=== PATIENT | male | born 1975 | race Two or more races ===

== ENCOUNTER 2016-07-11 03:06 | Inpatient (IN) | payer MEDICAID ==
[~2016-07-11] VITALS: Ht 182.9 cm; Wt 106.4 kg
[2016-07-11 04:00] LABS: Basophils # (auto) 0 uL; Basophils % (auto) 0.3 % (0.0-2.0); DEFINITIVE VIEW TRANSMISSION; Eosinophils # (auto) 0 uL; Eosinophils % (auto) 0.4 % (0.0-7.0); Hematocrit 40.9 % (41.0-53.0); Hemoglobin 13.5 g/dL (13.5-17.5); Lymphocytes # (auto) 1.5 uL; Lymphocytes % (auto) 12.9 % (10.0-50.0); Mean Corpuscular Hemoglobin 29.9 pg (28.0-32.0); Mean Corpuscular Volume 90.6 fL (80.0-100.0); Mean Platelet Volume 9.5 fL (7.4-10.4); Monocytes # (auto) 1.7 uL; Monocytes % (auto) 14.4 % (0.0-12.0); Neutrophils # (auto) 8.7 uL; Platelet Count (auto) 203 10^3/uL (140-450); Red Cell Distribution Width 13.6 % (11.6-16.0)
[2016-07-11 04:10] LABS: INR 1.12 (0.9-1.15); Partial Thromboplastin Time 31.7 sec (22.64-33.71); Prothrombin Time 11.5 sec (9.37-12.3)
[2016-07-11 04:20] LABS: B-Type Natriuretic Peptide 10.73 pg/mL (0-100)
[2016-07-11 04:21] LABS: Albumin 3.7 g/dL (3.4-5.0); BUN/Creatinine Ratio 13.9; Bilirubin, Total 0.5 mg/dL (0.2-1.0); Calcium 8.6 mg/dL (8.5-10.1); Magnesium 2.3 mg/dL (1.6-2.6); Potassium 3.6 mmol/L (3.5-5.1); Total Protein 6.5 g/dL (6.4-8.2)
[2016-07-11 04:39] LABS: Temperature: 21.4 C (20.0-25.0)
[2016-07-11 06:03] LABS: Urine RBC None Seen /hpf (0 - 3)
[2016-07-11 06:28] LABS: Urine Bilirubin Negative (Negative); Urine Blood Negative /uL (Negative); Urine Color Yellow (Yellow); Urine Glucose Normal (Normal); Urine Ketone Negative (Negative); Urine Mucus FEW (None Seen); Urine Nitrite Negative (Negative); Urine Urobilinogen Normal (Negative)
[2016-07-11] MEDS ORDERED: FUROSEMIDE 20 MG/2 ML VIAL IV ONE (12:15)
[2016-07-11] MEDS ORDERED: VANCOMYCIN 1GM/250ML D5W 250 ML IV ONE (12:15)
[2016-07-11] MEDS ORDERED: cefTRIAXone 1GM/50ML D5W 50 ML IV ONE (12:15)
[2016-07-11] MEDS ORDERED: LACTULOSE 20Gm/30ML SOLN PO PRN (12:45)
[2016-07-11] MEDS ORDERED: MORPHINE SULF INJ 2 MG/ML SYRINGE 1ML IV PRN (12:45)
[2016-07-11] MEDS ORDERED: NITROGLYCERIN 0.4 MG SL TAB SL PRN (12:45)
[2016-07-11] MEDS ORDERED: ACETAMINOPHEN 500 MG TAB PO PRN (12:45)
[2016-07-11] MEDS ORDERED: PROMETHAZINE HCL 25 MG/ML 1ML IV PRN (12:45)
[2016-07-11] MEDS ORDERED: LORazepam 0.5 MG TAB PO PRN (12:45)
[2016-07-11] MEDS ORDERED: TEMAZEPAM 15 MG CAP PO PRN (12:45)
[2016-07-11] MEDS ORDERED: ENOXAPARIN SOD 40 MG/0.4 ML SYRINGE SC ONE (13:00)
[2016-07-11] MEDS: SODIUM CHLORIDE 0.9% 1,000 ML IV SCH ×2 (13:22→15:43)
[2016-07-11] MEDS: CLINDAMYCIN 600MG IV 50 ML IV SCH ×2 (15:44→21:42)
[2016-07-11] MEDS: MORPHINE SULF INJ 2 MG/ML SYRINGE 1ML IV PRN ×2 (15:52→21:00)
[2016-07-11 16:45] VITALS: BP 135/77
[2016-07-11] MEDS: HYDROcodone-ACET 5/325MG TAB PO PRN (17:55)
[2016-07-11 20:00] VITALS: BP 124/84
[2016-07-11 22:00] VITALS: BP 124/84
[2016-07-12] MEDS: MORPHINE SULF INJ 2 MG/ML SYRINGE 1ML IV PRN ×2 (03:14→10:21)
[2016-07-12 05:05] VITALS: BP 136/79
[2016-07-12] MEDS: CLINDAMYCIN 600MG IV 50 ML IV SCH ×2 (05:30→14:00)
[2016-07-12 05:35] LABS: Basophils # (auto) 0 uL; Basophils % (auto) 0.5 % (0.0-2.0); Eosinophils # (auto) 0.1 uL; Eosinophils % (auto) 1.5 % (0.0-7.0); Hematocrit 40.3 % (41.0-53.0); Hemoglobin 13.3 g/dL (13.5-17.5); Lymphocytes # (auto) 2.4 uL; Lymphocytes % (auto) 33.3 % (10.0-50.0); Mean Corpuscular Hemoglobin 30.2 pg (28.0-32.0); Mean Corpuscular Volume 91.6 fL (80.0-100.0); Monocytes # (auto) 1.3 uL; Monocytes % (auto) 17.8 % (0.0-12.0); Neutrophils # (auto) 3.4 uL; Neutrophils % (auto) 46.9 % (37.0-80.0); Platelet Count (auto) 191 10^3/uL (140-450); Red Cell Distribution Width 13.9 % (11.6-16.0); White Blood Cell 7.2 10^3/uL (4.4-10.8)
[2016-07-12 05:49] LABS: Cholesterol 106 mg/dL (<200); HDL Cholesterol 41 mg/dL (40-59); LDL Cholesterol 61 mg/dL (<100); Triglycerides 89 mg/dL (<150)
[2016-07-12 07:59] VITALS: BP 126/74
[2016-07-12] MEDS ORDERED: cefTRIAXone 1GM/50ML D5W 50 ML IV SCH (09:00)
[2016-07-12 09:24] VITALS: BP 132/79
[2016-07-12] MEDS ORDERED: ENOXAPARIN SOD 40 MG/0.4 ML SYRINGE SC SCH (10:00)
[2016-07-12] MEDS: SODIUM CHLORIDE 0.9% 1,000 ML IV SCH (10:28)
[2016-07-12 11:16] VITALS: BP 132/79
[2016-07-12] MEDS: HYDROcodone-ACET 5/325MG TAB PO PRN (11:42)
== END 2016-07-12 15:30 | disposition home or self-care (01) | DRG 383 ==
LOC: ER 03:08 → TELE 03:09 → TELE-CENTR 14:51
PROVIDERS: ADMIT Internal Medicine; ATTEND Internal Medicine
DX: L03.115 Cellulitis of right lower limb (principal); F15.10 Other stimulant abuse, uncomplicated; M10.9 Gout, unspecified; E66.9 Obesity, unspecified; F17.210 Nicotine dependence, cigarettes, uncomplicated; Z68.31 Body mass index [BMI] 31.0-31.9, adult; Z82.49 Family history of ischemic heart disease and other diseases of the circulatory system; Z83.3 Family history of diabetes mellitus
CPT/HCPCS: 36415; 71010; 73590; 73600; 73630; 80053; 80061; 81001; 83735; 83880; 84550; 85025; 85379; 85610; 85652; 85730; 87040; 93005; 93970; 96365; 96368; 96372; 96375; G0434; J0696; J3490

== ENCOUNTER 2017-03-22 14:46 | Emergency (ER) | payer MEDICAID ==
[~2017-03-22] VITALS: Ht 182.9 cm; Wt 95.3 kg
[2017-03-22 15:26] LABS: Basophils # (auto) 0.1 uL; Basophils % (auto) 0.7 % (0.0-2.0); Eosinophils # (auto) 0 uL; Eosinophils % (auto) 0.4 % (0.0-7.0); Hemoglobin 15.9 g/dL (13.5-17.5); Lymphocytes # (auto) 2.2 uL; Lymphocytes % (auto) 24.6 % (10.0-50.0); Mean Corpuscular Hemoglobin 31.8 pg (28.0-32.0); Mean Corpuscular Hgb Conc. 33.8 g/dL (32.0-36.0); Mean Corpuscular Volume 94.1 fL (80.0-100.0); Monocytes # (auto) 0.7 uL; Monocytes % (auto) 7.5 % (0.0-12.0); Neutrophils # (auto) 5.9 uL; Neutrophils % (auto) 66.8 % (37.0-80.0); Nucleated Red Blood Cells % 0.1 %; Platelet Count (auto) 225 10^3/uL (140-450); Red Cell Distribution Width 13.5 % (11.8-14.3); White Blood Cell 8.8 10^3/uL (4.4-10.8)
[2017-03-22 15:53] LABS: Potassium 3.7 mmol/L (3.5-5.1)
[2017-03-22 15:54] LABS: BUN/Creatinine Ratio 13.9; Calcium 8.6 mg/dL (8.5-10.1)
[2017-03-22 15:55] LABS: Bilirubin, Total 0.8 mg/dL (0.2-1.0); Total Protein 7.4 g/dL (6.4-8.2)
[2017-03-22 16:45] VITALS: BP 145/94
== END 2017-03-22 23:04 | disposition left against medical advice (07) ==
LOC: ER 14:52
DX: R51 Headache (principal); Z53.21 Procedure and treatment not carried out due to patient leaving prior to being seen by health care provider
CPT/HCPCS: 36415; 70450; 70486; 80053; 84484; 85025; 93005

== ENCOUNTER 2017-11-02 04:46 | Emergency (ER) | payer MEDICAID ==
[~2017-11-02] VITALS: Ht 182.9 cm; Wt 93.0 kg
[2017-11-02 04:57] VITALS: BP 142/92
[2017-11-02] MEDS ORDERED: cefTRIAXone SOD 1,000 MG VL IM ONE (07:00)
[2017-11-02] MEDS ORDERED: KETOROLAC TROMETH 60MG/2ML VIAL IM ONE (07:00)
[2017-11-02] MEDS ORDERED: TETANUS-DIPTH-ACEL PERTUSSIS 0.5ML SYRG IM ONE (08:00)
== END 2017-11-02 08:22 | disposition home or self-care (01) ==
LOC: ER 04:46
DX: S70.212A Abrasion, left hip, initial encounter (principal); S80.812A Abrasion, left lower leg, initial encounter; F17.210 Nicotine dependence, cigarettes, uncomplicated; M10.00 Idiopathic gout, unspecified site; V43.52XA Car driver injured in collision with other type car in traffic accident, initial encounter; Y93.89 Activity, other specified; Y99.8 Other external cause status; Y92.89 Other specified places as the place of occurrence of the external cause
CPT/HCPCS: 73562; 73610; 73630; 90471; 90715; 96372; 99284; J0696; J1885

== ENCOUNTER 2019-01-12 03:27 | Emergency (ER) | payer MEDICAID ==
[~2019-01-12] VITALS: Ht 182.9 cm; Wt 99.8 kg
[2019-01-12] MEDS ORDERED: ACETAMINOPHEN 500 MG TAB PO ONE (06:00)
[2019-01-12 06:07] VITALS: BP 165/115
[2019-01-12] MEDS ORDERED: TETANUS-DIPTH-ACEL PERTUSSIS 0.5ML SYRG IM ONE (06:15)
== END 2019-01-12 06:11 | disposition home or self-care (01) ==
LOC: ER 03:28
DX: S01.01XA Laceration without foreign body of scalp, initial encounter (principal); F17.210 Nicotine dependence, cigarettes, uncomplicated; W22.8XXA Striking against or struck by other objects, initial encounter; Y93.89 Activity, other specified; Y92.89 Other specified places as the place of occurrence of the external cause; Y99.8 Other external cause status
CPT/HCPCS: 12002; 70450; 90471; 90715

== ENCOUNTER 2019-10-22 17:00 | Emergency (ER) | payer SELFPAY ==
[~2019-10-22] VITALS: Ht 185.4 cm; Wt 104.3 kg
[2019-10-22 17:17] VITALS: BP 144/94
[2019-10-22] MEDS ORDERED: KETOROLAC TROMETH 60MG/2ML VIAL IM ONE (17:30)
[2019-10-22] MEDS ORDERED: cefTRIAXone SOD 1,000 MG VL IM ONE (17:30)
== END 2019-10-22 17:51 | disposition home or self-care (01) ==
LOC: ER 17:00
DX: M10.072 Idiopathic gout, left ankle and foot (principal); B99.8 Other infectious disease; F17.210 Nicotine dependence, cigarettes, uncomplicated
CPT/HCPCS: 96372; 99284; J0696; J1885

== ENCOUNTER 2020-09-04 20:25 | Emergency (ER) | payer MEDICAID ==
[~2020-09-04] VITALS: Ht 182.9 cm; Wt 104.3 kg
[2020-09-04] MEDS ORDERED: KETOROLAC TROMETH 60MG/2ML VIAL IM ONE (22:30)
[2020-09-04] MEDS ORDERED: cefTRIAXone 1GM/50ML D5W 50 ML IV ONE (22:30)
[2020-09-04 23:30] VITALS: BP 130/76
== END 2020-09-05 00:30 | disposition home or self-care (01) ==
LOC: ER 20:26
DX: M10.9 Gout, unspecified (principal); F17.210 Nicotine dependence, cigarettes, uncomplicated; F12.10 Cannabis abuse, uncomplicated
CPT/HCPCS: 87491; 87591; 96365; 96372; 99284; J0696; J1885

== ENCOUNTER 2021-10-11 22:00 | Emergency (ER) | payer MEDICAID ==
[~2021-10-11] VITALS: Ht 182.9 cm; Wt 104.3 kg
[2021-10-11] MEDS ORDERED: OXYCODONE W/ ACETAMINOPHEN 5/325MG TABLET PO ONE (22:45)
[2021-10-11] MEDS ORDERED: ONDANSETRON ODT 4 MG TAB PO ONE (22:45)
[2021-10-11 23:29] LABS: Basophils # (auto) 0.1 10 ^3/uL (0-0.2); Basophils % (auto) 0.5 % (0.0-2.0); Eosinophils # (auto) 0.1 10 ^3/uL (0-0.8); Eosinophils % (auto) 1.1 % (0.0-7.0); Hematocrit 40.2 % (41.0-53.0); Hemoglobin 13.5 g/dL (13.5-17.5); Lymphocytes # (auto) 2.6 10 ^3/uL (0.4-5.4); Lymphocytes % (auto) 20.6 % (10.0-50.0); Mean Corpuscular Hemoglobin 30.5 pg (28.0-32.0); Mean Corpuscular Hgb Conc. 33.7 g/dL (32.0-36.0); Mean Corpuscular Volume 90.8 fL (80.0-100.0); Monocytes # (auto) 1.6 10 ^3/uL (0-1.3); Monocytes % (auto) 13.2 % (0.0-12.0); Neutrophils % (auto) 64.6 % (37.0-80.0); Nucleated Red Blood Cells % 0.1 %; Red Blood Cells 4.43 10^6/uL (4.5-5.90); Red Cell Distribution Width 13.7 % (11.8-14.3); White Blood Cell 12.4 10^3/uL (4.4-10.8)
[2021-10-11 23:44] LABS: Albumin 3.1 g/dL (3.4-5.0); Calcium 8.7 mg/dL (8.5-10.1); Potassium 4.3 mmol/L (3.5-5.1)
[2021-10-11 23:47] LABS: BUN/Creatinine Ratio 10.3; Bilirubin, Total 0.4 mg/dL (0.2-1.0); Total Protein 6.7 g/dL (6.4-8.2)
[2021-10-12] VITALS: BP 141/79
[2021-10-12 02:05] LABS: Urine Amorphous Crystal FEW /hpf (None Seen); Urine Bacteria FEW /hpf (None Seen); Urine Blood TRACE /uL (Negative); Urine Specific Gravity 1.012 (1.001-1.035); Urine WBC 22 /hpf (0 - 3)
== END 2021-10-12 00:51 | disposition home or self-care (01) ==
LOC: EDBD 22:00 → ER 22:03
DX: J32.9 Chronic sinusitis, unspecified (principal); F17.210 Nicotine dependence, cigarettes, uncomplicated; F12.10 Cannabis abuse, uncomplicated; R94.31 Abnormal electrocardiogram [ECG] [EKG]
CPT/HCPCS: 36415; 70450; 71045; 80053; 81001; 85025; 93005; 99285; Q0162

== ENCOUNTER 2022-10-12 21:32 | Inpatient (IN) | payer OTHER, MEDICAID ==
[~2022-10-12] VITALS: Ht 160 cm; Wt 55.4 kg
[2022-10-12 22:44] LABS: Basophils # (auto) 0 10 ^3/uL (0-0.2); Basophils % (auto) 0.9 % (0.0-2.0); Eosinophils # (auto) 0.1 10 ^3/uL (0-0.8); Eosinophils % (auto) 1.9 % (0.0-7.0); Hematocrit 36.5 % (41.0-53.0); Hemoglobin 12.1 g/dL (13.5-17.5); Lymphocytes # (auto) 1.1 10 ^3/uL (0.4-5.4); Mean Corpuscular Hemoglobin 31.9 pg (28.0-32.0); Mean Corpuscular Hgb Conc. 33.3 g/dL (32.0-36.0); Mean Corpuscular Volume 95.8 fL (80.0-100.0); Monocytes # (auto) 0.5 10 ^3/uL (0-1.3); Monocytes % (auto) 9.3 % (0.0-12.0); Neutrophils # (auto) 3.4 10 ^3/uL (1.6-8.6); Neutrophils % (auto) 65.9 % (37.0-80.0); Nucleated Red Blood Cells % 0.1 %; Red Blood Cells 3.81 10^6/uL (4.5-5.90); White Blood Cell 5.1 10^3/uL (4.4-10.8)
[2022-10-12 23:07] LABS: Albumin 3.7 g/dL (3.4-5.0); Calcium 9.6 mg/dL (8.5-10.1); Magnesium 2.4 mg/dL (1.6-2.6); Potassium 3.9 mmol/L (3.5-5.1)
[2022-10-12 23:16] LABS: BUN/Creatinine Ratio 20.6 (10.0-20.0); Bilirubin, Total 0.2 mg/dL (0.2-1.0); Total Protein 6.7 g/dL (6.4-8.2)
[2022-10-13] MEDS ORDERED: cefTRIAXone SOD 1,000 MG VL IV ONE (04:15)
[2022-10-13] MEDS ORDERED: DOCUSATE SOD 100 MG CAP PO PRN (04:30)
[2022-10-13] MEDS: SODIUM CHLORIDE 0.9% 1,000 ML IV SCH ×2 (04:30→22:59)
[2022-10-13] MEDS ORDERED: HYDROcodone-ACET 5/325MG TAB PO PRN (04:30)
[2022-10-13] MEDS ORDERED: MORPHINE SULFATE INJ 2 MG/ml SYRG IV PRN (05:00)
[2022-10-13] MEDS ORDERED: NITROGLYCERIN 0.4 MG SL TAB SL PRN (05:00)
[2022-10-13] MEDS: cefTRIAXone 1GM/50ML D5W 50 ML IV SCH (05:30)
[2022-10-13] MEDS ORDERED: hydrALAZINE HCL 20 MG/ML VL IV PRN (06:15)
[2022-10-13 06:56] LABS: Basophils # (auto) 0 10 ^3/uL (0-0.2); Basophils % (auto) 0.7 % (0.0-2.0); Eosinophils # (auto) 0.1 10 ^3/uL (0-0.8); Eosinophils % (auto) 1.4 % (0.0-7.0); Hematocrit 35.8 % (36.0-46.0); Hemoglobin 12.2 g/dL (12.2-16.2); Lymphocytes # (auto) 0.9 10 ^3/uL (0.4-5.4); Lymphocytes % (auto) 22.9 % (10.0-50.0); Mean Corpuscular Hemoglobin 32.6 pg (28.0-32.0); Mean Corpuscular Hgb Conc. 33.9 g/dL (32.0-36.0); Mean Corpuscular Volume 96.2 fL (80.0-100.0); Monocytes # (auto) 0.4 10 ^3/uL (0-1.3); Monocytes % (auto) 10.8 % (0.0-12.0); Neutrophils # (auto) 2.6 10 ^3/uL (1.6-8.6); Neutrophils % (auto) 64.2 % (37.0-80.0); Nucleated Red Blood Cells % 0.1 %; Red Blood Cells 3.72 10^6/uL (4.0-5.20); Red Cell Distribution Width 13.1 % (11.8-14.3); White Blood Cell 4.1 10^3/uL (4.4-10.8)
[2022-10-13 07:14] LABS: Albumin 3.6 g/dL (3.4-5.0); Calcium 9.2 mg/dL (8.5-10.1); Potassium 3.9 mmol/L (3.5-5.1)
[2022-10-13 07:16] LABS: Urine Bacteria FEW /hpf (None Seen); Urine Blood Negative /uL (Negative); Urine Specific Gravity 1.006 (1.001-1.035); Urine WBC 4 /hpf (0 - 5)
[2022-10-13 07:17] LABS: Bilirubin, Total 0.4 mg/dL (0.2-1.0); Total Protein 6.8 g/dL (6.4-8.2)
[2022-10-13] MEDS: LEVOTHYROXINE SODIUM 25 MCG TAB PO SCH (08:31)
[2022-10-13] MEDS ORDERED: FAMOTIDINE (10MG/ML) 2ML VL IV SCH (10:00)
[2022-10-13] MEDS: amLODIPine BESYLATE 5 MG TAB PO SCH (10:07)
[2022-10-13] MEDS: METOPROLOL TARTRATE 25 MG TAB PO SCH ×2 (10:08→22:59)
[2022-10-13] MEDS: ASPirin 81 mg TAB PO SCH (10:08)
[2022-10-13] MEDS: MULTIPLE VITAMIN TAB PO SCH (10:08)
[2022-10-13] MEDS ORDERED: FLUT50SP NAS (10:51)
[2022-10-13] MEDS ORDERED: LEV25T PO (10:51)
[2022-10-13] MEDS ORDERED: RIV20T PO (10:51)
[2022-10-13] MEDS ORDERED: PANT40T PO (10:51)
[2022-10-13] MEDS ORDERED: LORA-655 PO (10:51)
[2022-10-13] MEDS ORDERED: MET25T PO (10:51)
[2022-10-13] MEDS ORDERED: CYAN100042 PO (10:51)
[2022-10-13] MEDS ORDERED: FERR325T20 PO (10:51)
[2022-10-13] MEDS ORDERED: GAB100C PO (10:51)
[2022-10-13] MEDS ORDERED: FOLI1TAB6 PO (10:51)
[2022-10-13] MEDS ORDERED: EZET-10 PO (10:51)
[2022-10-13] MEDS ORDERED: CHOL50007 PO (10:51)
[2022-10-13] MEDS ORDERED: LEVO500T31 PO (11:09)
[2022-10-13] MEDS ORDERED: AML5T PO (11:09)
[2022-10-13] MEDS: ONDANSETRON HCL 4 MG/2 ML VIAL IV PRN (14:36)
[2022-10-13] MEDS: GABAPENTIN 100 MG CAP PO SCH ×2 (14:36→22:59)
[2022-10-13] MEDS: ACETAMINOPHEN 325 MG TAB PO PRN (18:59)
[2022-10-13] MEDS ORDERED: ATORVASTATIN 20 MG TAB PO SCH (22:00)
[2022-10-14 05:00] VITALS: BP 126/65
[2022-10-14 06:09] LABS: Basophils # (auto) 0 10 ^3/uL (0-0.2); Basophils % (auto) 0.7 % (0.0-2.0); Eosinophils # (auto) 0.1 10 ^3/uL (0-0.8); Eosinophils % (auto) 3.5 % (0.0-7.0); Hematocrit 36.3 % (36.0-46.0); Hemoglobin 12.2 g/dL (12.2-16.2); Lymphocytes # (auto) 1.3 10 ^3/uL (0.4-5.4); Lymphocytes % (auto) 31.2 % (10.0-50.0); Mean Corpuscular Hemoglobin 32.5 pg (28.0-32.0); Mean Corpuscular Hgb Conc. 33.7 g/dL (32.0-36.0); Mean Corpuscular Volume 96.4 fL (80.0-100.0); Monocytes # (auto) 0.4 10 ^3/uL (0-1.3); Monocytes % (auto) 10.6 % (0.0-12.0); Neutrophils # (auto) 2.2 10 ^3/uL (1.6-8.6); Nucleated Red Blood Cells % 0.1 %; Red Blood Cells 3.76 10^6/uL (4.0-5.20); White Blood Cell 4.1 10^3/uL (4.4-10.8)
[2022-10-14] MEDS: GABAPENTIN 100 MG CAP PO SCH ×3 (06:13→21:08)
[2022-10-14] MEDS: LEVOTHYROXINE SODIUM 25 MCG TAB PO SCH (06:14)
[2022-10-14 06:30] LABS: Potassium 3.8 mmol/L (3.5-5.1)
[2022-10-14 06:49] LABS: Albumin 3.6 g/dL (3.4-5.0); BUN/Creatinine Ratio 17.9 (10.0-20.0); Bilirubin, Total 0.8 mg/dL (0.2-1.0); Calcium 8.9 mg/dL (8.5-10.1); Total Protein 6.3 g/dL (6.4-8.2)
[2022-10-14 08:00] VITALS: BP 118/67
[2022-10-14 09:00] VITALS: BP 118/67
[2022-10-14] MEDS: cefTRIAXone 1GM/50ML D5W 50 ML IV SCH (09:10)
[2022-10-14] MEDS: FOLIC ACID 1 MG TAB PO SCH (09:11)
[2022-10-14] MEDS: FERROUS SULFATE 325mg EC TAB PO SCH (09:11)
[2022-10-14] MEDS: PANTOPRAZOLE 40 MG TAB PO SCH (09:11)
[2022-10-14] MEDS: ASPirin 81 mg TAB PO SCH (09:11)
[2022-10-14] MEDS: amLODIPine BESYLATE 5 MG TAB PO SCH (09:15)
[2022-10-14] MEDS: MULTIPLE VITAMIN TAB PO SCH (09:16)
[2022-10-14] MEDS: METOPROLOL TARTRATE 25 MG TAB PO SCH ×2 (09:16→21:08)
[2022-10-14] MEDS: PATIENTS OWN MEDICATION (Cholecalciferol (Vitamin D3) 1 CAP) PO SCH (09:28)
[2022-10-14] MEDS: EZETIMIBE PO SCH (09:29)
[2022-10-14] MEDS ORDERED: PATIENTS OWN MEDICATION (Folic Acid 1 TAB) PO SCH (10:00)
[2022-10-14] MEDS ORDERED: RIVAROXABAN 20 MG TAB PO SCH (10:00)
[2022-10-14] MEDS ORDERED: PATIENTS OWN MEDICATION (Ferrous Sulfate (Ferosul) 1 TAB) PO SCH (10:00)
[2022-10-14 13:00] VITALS: BP 123/70
[2022-10-14 13:24] LABS: Hepatitis C Antibody Negative (Negative)
[2022-10-14] MEDS: SODIUM CHLORIDE 0.9% 1,000 ML IV SCH (13:50)
[2022-10-14] MEDS: ACETAMINOPHEN 325 MG TAB PO PRN ×2 (17:12→22:18)
[2022-10-14 17:21] VITALS: BP 121/65
[2022-10-14] MEDS: ONDANSETRON HCL 4 MG/2 ML VIAL IV PRN (20:52)
[2022-10-14 22:00] VITALS: BP 118/59
[2022-10-15 05:00] VITALS: BP 128/65
[2022-10-15] MEDS: LEVOTHYROXINE SODIUM 25 MCG TAB PO SCH (05:41)
[2022-10-15] MEDS: GABAPENTIN 100 MG CAP PO SCH ×2 (05:41→14:30)
[2022-10-15] MEDS: SODIUM CHLORIDE 0.9% 1,000 ML IV SCH (06:30)
[2022-10-15 08:00] VITALS: BP 118/67
[2022-10-15 09:00] VITALS: BP 110/59
[2022-10-15] MEDS: cefTRIAXone 1GM/50ML D5W 50 ML IV SCH (09:00)
[2022-10-15] MEDS: EZETIMIBE PO SCH (10:00)
[2022-10-15] MEDS: PATIENTS OWN MEDICATION (Cholecalciferol (Vitamin D3) 1 CAP) PO SCH (10:00)
[2022-10-15] MEDS: FOLIC ACID 1 MG TAB PO SCH (10:02)
[2022-10-15] MEDS: ASPirin 81 mg TAB PO SCH (10:02)
[2022-10-15] MEDS: amLODIPine BESYLATE 5 MG TAB PO SCH (10:02)
[2022-10-15] MEDS: MULTIPLE VITAMIN TAB PO SCH (10:02)
[2022-10-15] MEDS: FERROUS SULFATE 325mg EC TAB PO SCH (10:03)
[2022-10-15] MEDS: METOPROLOL TARTRATE 25 MG TAB PO SCH (10:03)
[2022-10-15] MEDS: PANTOPRAZOLE 40 MG TAB PO SCH (10:03)
[2022-10-15] MEDS: ACETAMINOPHEN 325 MG TAB PO PRN (10:03)
[2022-10-15 13:00] VITALS: BP 107/55
[2022-10-15] MEDS ORDERED: traMADol HCL 50 MG TAB PO PRN (14:00)
[2022-10-15 16:07] VITALS: BP 110/59
[2022-10-15] MEDS ORDERED: RIVAROXABAN 20 MG TAB PO SCH (18:30)
== END 2022-10-15 18:19 | DRG 690 ==
LOC: TELE 10-13 04:53 → TELE-WESTW 10-13 21:34
PROVIDERS: ADMIT Nurse Practitioner Family; ATTEND Internal Medicine
DX: N39.0 Urinary tract infection, site not specified (principal); I48.0 Paroxysmal atrial fibrillation; E03.9 Hypothyroidism, unspecified; E78.5 Hyperlipidemia, unspecified; G47.00 Insomnia, unspecified; G62.9 Polyneuropathy, unspecified; I10 Essential (primary) hypertension; Z20.822 Contact with and (suspected) exposure to COVID-19; M10.9 Gout, unspecified; Z82.49 Family history of ischemic heart disease and other diseases of the circulatory system; Z83.3 Family history of diabetes mellitus; Z88.1 Allergy status to other antibiotic agents; Z79.01 Long term (current) use of anticoagulants
CPT/HCPCS: 36415; 71045; 80053; 81001; 82962; 83735; 83880; 84443; 84484; 85025; 85610; 85730; 86803; 87040; 87081; 87086; 87340; 87426; 96374; 97110; 97116; 97163; 97530; G0378; J0696; J2405; J3490

== ENCOUNTER 2023-08-27 14:05 | Emergency (ER) | payer OTHER, MEDICAID ==
[~2023-08-27] VITALS: Ht 162.6 cm; Wt 50.0 kg
[~2023-08-27 14:05] MED LIST: AML5T PO; CHOL50007 PO; CYAN100042 PO; EZET-10 PO; FERR325T20 PO; FLUT50SP NAS; FOLI-119 PO; GAB100C PO; LEV25T PO; LEVO500T31 PO; LORA-655 PO; MET25T PO; PANT40T PO; RIV20T PO
[2023-08-27 14:40] LABS: Basophils # (auto) 0 10 ^3/uL (0-0.2); Basophils % (auto) 0.2 % (0.0-2.0); Eosinophils # (auto) 0 10 ^3/uL (0-0.8); Eosinophils % (auto) 0.2 % (0.0-7.0); Hematocrit 39.7 % (36.0-46.0); Hemoglobin 12.9 g/dL (12.2-16.2); Lymphocytes # (auto) 0.5 10 ^3/uL (0.4-5.4); Lymphocytes % (auto) 7.1 % (10.0-50.0); Mean Corpuscular Hemoglobin 31.6 pg (28.0-32.0); Mean Corpuscular Hgb Conc. 32.5 g/dL (32.0-36.0); Mean Corpuscular Volume 97.1 fL (80.0-100.0); Monocytes # (auto) 0.4 10 ^3/uL (0-1.3); Neutrophils # (auto) 6.3 10 ^3/uL (1.6-8.6); Neutrophils % (auto) 87.5 % (37.0-80.0); Nucleated Red Blood Cells % 0.2 %; Red Blood Cells 4.09 10^6/uL (4.0-5.20); Red Cell Distribution Width 12.8 % (11.8-14.3); White Blood Cell 7.2 10^3/uL (4.4-10.8)
[2023-08-27 14:59] LABS: Alanine Aminotransferase 10 U/L (7-40); Albumin 4.3 g/dL (3.2-4.8); Alkaline Phosphatase 59 U/L (46-116); Anion Gap 7 (5-15); Aspartate Aminotransferase 21 U/L (13-40); BUN/Creatinine Ratio 19.6 (10.0-20.0); Bilirubin, Total 0.5 mg/dL (0.2-1.0); Blood Urea Nitrogen 18 mg/dL (9-23); Calcium 9.9 mg/dL (8.7-10.4); Carbon Dioxide 28 mmol/L (20-30); Chloride 107 mmol/L (98-107); Glucose 110 mg/dL (74-106); Potassium 4.4 mmol/L (3.5-5.1); Sodium 142 mmol/L (136-145); Total Protein 6.5 g/dL (5.7-8.2)
[2023-08-27] MEDS: SODIUM CHLORIDE 0.9% 1,000 ML IV ONE (16:21)
[2023-08-27 16:32] VITALS: PULSE 82; RESP 11; O2SAT 99
[2023-08-27 17:19] LABS: Urine Bacteria FEW /hpf (None Seen); Urine Blood 1+ /uL (Negative); Urine Clarity Clear (Clear); Urine Color Colorless (Yellow); Urine Mucus FEW (None Seen); Urine Protein, UAD Negative (Negative); Urine Specific Gravity 1.015 (1.001-1.035); Urine Urobilinogen Normal (Negative); Urine WBC <1 /hpf (0 - 5); Urine pH 5.5 (5.0-8.0)
[2023-08-27 19:30] VITALS: PULSE 70; RESP 12; O2SAT 99
[2023-08-28 02:16] VITALS: BP 126/68; PULSE 69; RESP 12; TEMP 98.9; O2SAT 99
== END 2023-08-28 02:40 | disposition short-term general hospital (02) ==
LOC: EDBD 14:05 → ER 14:05
DX: R55 Syncope and collapse (principal); I10 Essential (primary) hypertension; I48.91 Unspecified atrial fibrillation; M10.9 Gout, unspecified; F17.210 Nicotine dependence, cigarettes, uncomplicated; F15.90 Other stimulant use, unspecified, uncomplicated; Z98.890 Other specified postprocedural states; Z88.8 Allergy status to other drugs, medicaments and biological substances; Z79.899 Other long term (current) drug therapy
CPT/HCPCS: 36415; 70450; 80053; 81001; 84484; 85025; 96360; 96361; 99285; J7030

== ENCOUNTER 2023-12-10 20:54 | Emergency (ER) | payer OTHER, MEDICAID ==
[~2023-12-10] VITALS: Ht 154.9 cm; Wt 45.4 kg
[2023-12-10 21:46] LABS: Chloride 105 mmol/L (98-107); Potassium 3.7 mmol/L (3.5-5.1); Sodium 138 mmol/L (136-145)
[2023-12-10 21:47] LABS: Anion Gap 4 (5-15); Carbon Dioxide 29 mmol/L (20-30)
[2023-12-10 21:48] LABS: Calcium 9.8 mg/dL (8.5-10.1)
[2023-12-10 21:52] LABS: Blood Urea Nitrogen 15 mg/dL (9-23)
[2023-12-10 21:53] LABS: Blood Alcohol < 3.0 mg/dL (<10)
[2023-12-10 21:58] LABS: Basophils # (auto) 0 10 ^3/uL (0-0.2); Basophils % (auto) 0.8 % (0.0-2.0); Eosinophils # (auto) 0.1 10 ^3/uL (0-0.8); Eosinophils % (auto) 1.5 % (0.0-7.0); Hemoglobin 12.6 g/dL (12.2-16.2); Lymphocytes # (auto) 1.3 10 ^3/uL (0.4-5.4); Mean Corpuscular Hemoglobin 31.7 pg (28.0-32.0); Mean Corpuscular Hgb Conc. 33.3 g/dL (32.0-36.0); Mean Corpuscular Volume 95.2 fL (80.0-100.0); Monocytes # (auto) 0.5 10 ^3/uL (0-1.3); Neutrophils # (auto) 3.6 10 ^3/uL (1.6-8.6); Neutrophils % (auto) 65.7 % (37.0-80.0); Nucleated Red Blood Cells % 0.1 %; Red Blood Cells 3.99 10^6/uL (4.0-5.20); White Blood Cell 5.5 10^3/uL (4.4-10.8)
[2023-12-10 22:04] LABS: Glucose 109 mg/dL (74-106)
[2023-12-11 06:05] VITALS: PULSE 71; RESP 16; O2SAT 99
[2023-12-11] MEDS: LORazepam 0.5 MG TAB PO ONE (06:12)
[2023-12-11 07:20] VITALS: PULSE 70; RESP 13; O2SAT 98
[2023-12-11 11:43] LABS: Urine Bacteria FEW /hpf (None Seen); Urine Blood TRACE /uL (Negative); Urine Clarity Turbid (Clear); Urine Color Colorless (Yellow); Urine Hyaline Cast FEW /lpf (0 - 2); Urine Protein, UAD TRACE (Negative); Urine Specific Gravity 1.012 (1.001-1.035); Urine Urobilinogen Normal (Negative); Urine WBC 777 /hpf (0 - 5)
[2023-12-11] MEDS: SULFAMETHOX W/TRIMETH(800/160MG) DS TAB PO ONE (15:53)
[2023-12-11] MEDS: diphenhdrAMINE HCL 25 MG CAP PO ONE (17:55)
[2023-12-12 07:35] VITALS: PULSE 70; RESP 16; O2SAT 98
[2023-12-12] MEDS: SERTRALINE HCL 50 MG TAB PO ONE (09:10)
[2023-12-12 19:49] VITALS: BP 130/70; PULSE 72; RESP 18; TEMP 97.9; O2SAT 98
== END 2023-12-12 20:01 | disposition still patient (30) ==
LOC: EDBD 20:54 → ER 20:54
DX: R45.851 Suicidal ideations (principal); F32.9 Major depressive disorder, single episode, unspecified; F41.9 Anxiety disorder, unspecified; I10 Essential (primary) hypertension; F17.210 Nicotine dependence, cigarettes, uncomplicated; F12.90 Cannabis use, unspecified, uncomplicated; I48.91 Unspecified atrial fibrillation; Z98.890 Other specified postprocedural states
CPT/HCPCS: 36415; 71045; 80048; 80320; 81001; 85025

== ENCOUNTER 2024-02-20 09:26 | Inpatient (IN) | payer OTHER, MEDICAID ==
[~2024-02-20] VITALS: Ht 154.9 cm; Wt 48.8 kg
[2024-02-20 11:54] LABS: Basophils # (auto) 0 10 ^3/uL (0-0.2); Basophils % (auto) 1.1 % (0.0-2.0); Eosinophils # (auto) 0 10 ^3/uL (0-0.8); Eosinophils % (auto) 0.6 % (0.0-7.0); Hematocrit 40.3 % (36.0-46.0); Hemoglobin 13.8 g/dL (12.2-16.2); Lymphocytes # (auto) 0.7 10 ^3/uL (0.4-5.4); Lymphocytes % (auto) 16.5 % (10.0-50.0); Mean Corpuscular Hemoglobin 32.7 pg (28.0-32.0); Mean Corpuscular Hgb Conc. 34.3 g/dL (32.0-36.0); Mean Corpuscular Volume 95.6 fL (80.0-100.0); Monocytes # (auto) 0.3 10 ^3/uL (0-1.3); Monocytes % (auto) 7.8 % (0.0-12.0); Neutrophils # (auto) 3.1 10 ^3/uL (1.6-8.6); Platelet Count (auto) 218 10^3/uL (140-450); Red Blood Cells 4.22 10^6/uL (4.0-5.20); Red Cell Distribution Width 13.8 % (11.8-14.3); White Blood Cell 4.2 10^3/uL (4.4-10.8)
[2024-02-20 12:25] LABS: Alanine Aminotransferase 15 U/L (7-40); Albumin 4.6 g/dL (3.2-4.8); Alkaline Phosphatase 60 U/L (46-116); Anion Gap 8 (5-15); Aspartate Aminotransferase 22 U/L (13-40); BUN/Creatinine Ratio 14.3 (10.0-20.0); Bilirubin, Total 0.9 mg/dL (0.2-1.0); Blood Urea Nitrogen 13 mg/dL (9-23); Calcium 9.7 mg/dL (8.7-10.4); Carbon Dioxide 23 mmol/L (20-30); Chloride 106 mmol/L (98-107); Glucose 74 mg/dL (74-106); Potassium 3.9 mmol/L (3.5-5.1); Sodium 137 mmol/L (136-145); Total Protein 7.3 g/dL (5.7-8.2)
[2024-02-20] MEDS: NITROGLYCERIN 0.4 MG SL TAB SL ONE (18:45)
[2024-02-20] MEDS: LORazepam 0.5 MG TAB PO ONE (22:30)
[2024-02-21 02:30] VITALS: PULSE 70; RESP 12; O2SAT 99
[2024-02-21] MEDS ORDERED: LORazepam 0.5 MG TAB PO PRN (02:30)
[2024-02-21] MEDS ORDERED: METOPROLOL TARTRATE 50 MG TAB PO ONE (02:45)
[2024-02-21] MEDS: METOPROLOL TARTRATE 25 MG TAB PO ONE (03:28)
[2024-02-21] MEDS: HYDROcodone-ACET 5/325MG TAB PO ONE (04:46)
[2024-02-21 04:49] LABS: Urine Bacteria None Seen /hpf (None Seen)
[2024-02-21 05:00] LABS: Urine Blood 1+ /uL (Negative); Urine Clarity Clear (Clear); Urine Color Light-Yellow (Yellow); Urine Hyaline Cast MOD /lpf (0 - 2); Urine Protein, UAD TRACE (Negative); Urine Urobilinogen Normal (Negative); Urine WBC 106 /hpf (0 - 5); Urine pH 5.5 (5.0-9.0)
[2024-02-21 05:13] LABS: Amphetamine Screen, Urine Neg (NEGATIVE); Barbiturate Scree,Urine Neg (NEGATIVE); Benzodiazephine Screen, Urine Neg (NEGATIVE); Cannabinoid Screen, Urine Neg (NEGATIVE); Cocaine Screen, Urine Neg (NEGATIVE); Opiate Scree,Urine Neg (NEGATIVE); Phencyclidine Screen, Urine Neg (NEGATIVE)
[2024-02-21] MEDS ORDERED: CEPH500C PO (07:01)
[2024-02-21 07:55] VITALS: PULSE 69; RESP 12; O2SAT 98
[2024-02-21] MEDS: cefTRIAXone W LIDOCAINE 1 GM IM IM ONE (08:46)
[2024-02-21] MEDS: cefTRIAXone SOD 1,000 MG VL ONE (08:52)
[2024-02-21] MEDS: CITALOPRAM HYDROBR 20 MG TAB PO ONE (10:47)
[2024-02-21] MEDS: ACETAMINOPHEN 325 MG TAB PO ONE ×2 (14:08→14:10)
[2024-02-21] MEDS: ONDANSETRON ODT 4 MG TAB PO ONE (14:10)
[2024-02-21] MEDS: LORazepam 0.5 MG TAB PO PRN (14:11)
[2024-02-21] MEDS: ONDANSETRON ODT 4 MG TAB ONE (14:11)
[2024-02-21 20:00] VITALS: PULSE 70; O2SAT 97
[2024-02-22 07:30] VITALS: PULSE 72; RESP 16; O2SAT 98
[2024-02-22] MEDS: LORazepam 0.5 MG TAB PO ONE (08:14)
[2024-02-22] MEDS: CEPHALEXIN 250 MG CAP PO SCH (08:46)
[2024-02-22] MEDS: CITALOPRAM HYDROBR 20 MG TAB PO SCH (10:54)
[2024-02-22 19:20] VITALS: O2SAT 96
[2024-02-23] MEDS: DOCUSATE SOD 100 MG CAP PO ONE (12:37)
[2024-02-23] MEDS: ACETAMINOPHEN 325 MG TAB PO ONE (12:47)
[2024-02-23] MEDS ORDERED: MAGNESIUM CITRATE SOLUTION 300 ML BTL PO ONE (13:00)
[2024-02-23] MEDS: CEPHALEXIN 250 MG CAP PO SCH (22:21)
[2024-02-23] MEDS: LORazepam 0.5 MG TAB PO PRN (22:22)
[2024-02-23] MEDS: CITALOPRAM HYDROBR 20 MG TAB PO ONE ×2 (22:51)
[2024-02-24] MEDS ORDERED: HYDROmorphone HCL 2 MG/ML VL/or syr IV PRN (09:45)
[2024-02-24] MEDS: CITALOPRAM HYDROBR 20 MG TAB PO SCH (10:00)
[2024-02-24] MEDS ORDERED: ENOXAPARIN SOD 40 MG/0.4 ML SYRINGE SC SCH (10:00)
[2024-02-24 10:16] LABS: Basophils # (auto) 0 10 ^3/uL (0-0.2); Basophils % (auto) 1.3 % (0.0-2.0); Eosinophils # (auto) 0.1 10 ^3/uL (0-0.8); Eosinophils % (auto) 1.7 % (0.0-7.0); Hematocrit 39.4 % (36.0-46.0); Hemoglobin 13.3 g/dL (12.2-16.2); Lymphocytes # (auto) 1.1 10 ^3/uL (0.4-5.4); Lymphocytes % (auto) 32.6 % (10.0-50.0); Mean Corpuscular Hgb Conc. 33.8 g/dL (32.0-36.0); Mean Corpuscular Volume 94.6 fL (80.0-100.0); Monocytes # (auto) 0.3 10 ^3/uL (0-1.3); Monocytes % (auto) 9.1 % (0.0-12.0); Neutrophils # (auto) 1.9 10 ^3/uL (1.6-8.6); Neutrophils % (auto) 55.3 % (37.0-80.0); Nucleated Red Blood Cells % 0.1 %; Platelet Count (auto) 185 10^3/uL (140-450); Red Blood Cells 4.16 10^6/uL (4.0-5.20); Red Cell Distribution Width 13.1 % (11.8-14.3); White Blood Cell 3.4 10^3/uL (4.4-10.8)
[2024-02-24] MEDS: LACTATED RINGER'S 1,000 ML IV ONE (10:31)
[2024-02-24] MEDS: RIVAROXABAN 15 MG TAB PO SCH (10:31)
[2024-02-24] MEDS: cefTRIAXone 1GM/50ML D5W 50 ML IV SCH (10:31)
[2024-02-24] MEDS: METOPROLOL TARTRATE 25 MG TAB PO SCH (10:32)
[2024-02-24] MEDS: PANTOPRAZOLE 40 MG TAB PO SCH (10:32)
[2024-02-24] MEDS: FOLIC ACID 1 MG TAB PO SCH (10:32)
[2024-02-24] MEDS: amLODIPine BESYLATE 5 MG TAB PO SCH (10:32)
[2024-02-24] MEDS: FLUTICASONE PROP NASAL SPR 0.05 % (50MCG) 16GM SCH (10:32)
[2024-02-24] MEDS: FERROUS SULFATE 325mg EC TAB PO SCH (10:32)
[2024-02-24 10:45] LABS: Alanine Aminotransferase 13 U/L (7-40); Albumin 4.1 g/dL (3.2-4.8); Alkaline Phosphatase 55 U/L (46-116); Anion Gap 3 (5-15); Aspartate Aminotransferase 18 U/L (13-40); BUN/Creatinine Ratio 12.7 (10.0-20.0); Bilirubin, Total 0.7 mg/dL (0.2-1.0); Blood Urea Nitrogen 10 mg/dL (9-23); Calcium 9.5 mg/dL (8.7-10.4); Carbon Dioxide 30 mmol/L (20-30); Chloride 100 mmol/L (98-107); Glucose 117 mg/dL (74-106); Potassium 4.2 mmol/L (3.5-5.1); Sodium 133 mmol/L (136-145); Total Protein 6.4 g/dL (5.7-8.2)
[2024-02-24] MEDS: LEVOTHYROXINE SODIUM 25 MCG TAB PO SCH (10:58)
[2024-02-24] MEDS: GABAPENTIN 100 MG CAP PO SCH (14:00)
[2024-02-24] MEDS: SODIUM CHLOR 0.9% PF (SALINE LOCK) 10ML VIAL/SYR IV SCH (14:00)
[2024-02-24] MEDS: ACETAMINOPHEN 325 MG TAB PO PRN (19:40)
[2024-02-24] MEDS: ONDANSETRON HCL 4 MG/2 ML VIAL IV PRN (19:40)
[2024-02-24 19:56] LABS: Urine Bacteria None Seen /hpf (None Seen); Urine WBC None Seen /hpf (0 - 5)
[2024-02-24 20:13] LABS: Urine Blood Negative /uL (Negative); Urine Clarity Clear (Clear); Urine Color Colorless (Yellow); Urine Protein, UAD Negative (Negative); Urine Specific Gravity 1.004 (1.001-1.035); Urine Urobilinogen Normal (Negative); Urine pH 7.5 (5.0-9.0)
[2024-02-24 21:11] VITALS: RESP 14; O2SAT 92
[2024-02-25] VITALS (7 sets, daily range): BP systolic 94–120; BP diastolic 9–69; PULSE 57–70; RESP 16–20; TEMP 97.1–98.6; O2SAT 94–98
[2024-02-25 06:52] LABS: Basophils # (auto) 0 10 ^3/uL (0-0.2); Basophils % (auto) 0.7 % (0.0-2.0); Eosinophils # (auto) 0.1 10 ^3/uL (0-0.8); Eosinophils % (auto) 2.3 % (0.0-7.0); Hematocrit 38.4 % (36.0-46.0); Lymphocytes # (auto) 1.3 10 ^3/uL (0.4-5.4); Lymphocytes % (auto) 28.3 % (10.0-50.0); Mean Corpuscular Hemoglobin 32.5 pg (28.0-32.0); Mean Corpuscular Volume 95.8 fL (80.0-100.0); Monocytes # (auto) 0.4 10 ^3/uL (0-1.3); Monocytes % (auto) 9.2 % (0.0-12.0); Neutrophils # (auto) 2.7 10 ^3/uL (1.6-8.6); Neutrophils % (auto) 59.5 % (37.0-80.0); Nucleated Red Blood Cells % 0.1 %; Platelet Count (auto) 184 10^3/uL (140-450); Red Blood Cells 4.01 10^6/uL (4.0-5.20); Red Cell Distribution Width 13.6 % (11.8-14.3); White Blood Cell 4.6 10^3/uL (4.4-10.8)
[2024-02-25 07:15] LABS: Alanine Aminotransferase 12 U/L (7-40); Albumin 3.7 g/dL (3.2-4.8); Alkaline Phosphatase 52 U/L (46-116); Anion Gap 7 (5-15); Aspartate Aminotransferase 16 U/L (13-40); BUN/Creatinine Ratio 9.6 (10.0-20.0); Bilirubin, Total 0.3 mg/dL (0.2-1.0); Blood Urea Nitrogen 10 mg/dL (9-23); Calcium 9.3 mg/dL (8.7-10.4); Carbon Dioxide 24 mmol/L (20-30); Chloride 101 mmol/L (98-107); Glucose 95 mg/dL (74-106); Potassium 4.1 mmol/L (3.5-5.1); Sodium 132 mmol/L (136-145); Total Protein 5.9 g/dL (5.7-8.2)
[2024-02-25 09:27] LABS: Free T4 (Free Thyroxine) 0.73 ng/dL (0.89-1.76)
[2024-02-25] MEDS: DOCUSATE SOD 100 MG CAP PO PRN (11:13)
[2024-02-26] VITALS (7 sets, daily range): BP systolic 108–132; BP diastolic 53–62; PULSE 56–70; RESP 17–19; TEMP 96.6–98.2; O2SAT 97–100
[2024-02-26] MEDS: LEVOTHYROXINE SODIUM 88 MCG TAB PO SCH (05:34)
[2024-02-26 07:31] LABS: Basophils # (auto) 0 10 ^3/uL (0-0.2); Eosinophils # (auto) 0.1 10 ^3/uL (0-0.8); Hematocrit 37.8 % (36.0-46.0); Hemoglobin 12.9 g/dL (12.2-16.2); Lymphocytes % (auto) 27.3 % (10.0-50.0); Mean Corpuscular Hgb Conc. 34.1 g/dL (32.0-36.0); Mean Corpuscular Volume 96.7 fL (80.0-100.0); Monocytes # (auto) 0.4 10 ^3/uL (0-1.3); Monocytes % (auto) 9.8 % (0.0-12.0); Neutrophils # (auto) 2.3 10 ^3/uL (1.6-8.6); Neutrophils % (auto) 58.9 % (37.0-80.0); Nucleated Red Blood Cells % 0.1 %; Platelet Count (auto) 170 10^3/uL (140-450); Red Blood Cells 3.91 10^6/uL (4.0-5.20); Red Cell Distribution Width 13.3 % (11.8-14.3); White Blood Cell 3.8 10^3/uL (4.4-10.8)
[2024-02-26 07:39] LABS: Alkaline Phosphatase 52 U/L (46-116); Anion Gap 3 (5-15); Blood Urea Nitrogen 12 mg/dL (9-23); Calcium 9.2 mg/dL (8.7-10.4); Carbon Dioxide 30 mmol/L (20-30); Chloride 101 mmol/L (98-107); Glucose 91 mg/dL (74-106); Potassium 4.1 mmol/L (3.5-5.1); Sodium 134 mmol/L (136-145)
[2024-02-26 07:40] LABS: Albumin 3.8 g/dL (3.2-4.8); Aspartate Aminotransferase 12 U/L (13-40); Bilirubin, Total 0.3 mg/dL (0.2-1.0); Total Protein 5.9 g/dL (5.7-8.2)
[2024-02-26 07:42] LABS: Alanine Aminotransferase < 9 U/L (7-40)
[2024-02-26] MEDS: MECLIZINE HCL 25 MG TAB PO PRN (10:38)
[2024-02-27] VITALS (8 sets, daily range): BP systolic 107–122; BP diastolic 57–64; PULSE 52–72; RESP 15–18; TEMP 97.7–98.3; O2SAT 96–100
[2024-02-27] MEDS: LEVOTHYROXINE SODIUM 112 MCG TAB PO SCH (05:05)
[2024-02-27 07:10] LABS: Basophils # (auto) 0.1 10 ^3/uL (0-0.2); Basophils % (auto) 1.4 % (0.0-2.0); Eosinophils # (auto) 0.1 10 ^3/uL (0-0.8); Eosinophils % (auto) 3.8 % (0.0-7.0); Hemoglobin 12.3 g/dL (12.2-16.2); Lymphocytes % (auto) 27.4 % (10.0-50.0); Mean Corpuscular Hemoglobin 32.9 pg (28.0-32.0); Mean Corpuscular Hgb Conc. 34.2 g/dL (32.0-36.0); Mean Corpuscular Volume 96.2 fL (80.0-100.0); Monocytes # (auto) 0.4 10 ^3/uL (0-1.3); Neutrophils # (auto) 2.1 10 ^3/uL (1.6-8.6); Neutrophils % (auto) 56.4 % (37.0-80.0); Nucleated Red Blood Cells % 0.1 %; Platelet Count (auto) 154 10^3/uL (140-450); Red Blood Cells 3.74 10^6/uL (4.0-5.20); Red Cell Distribution Width 13.5 % (11.8-14.3); White Blood Cell 3.7 10^3/uL (4.4-10.8)
[2024-02-27 07:26] LABS: Albumin 3.5 g/dL (3.2-4.8); Alkaline Phosphatase 47 U/L (46-116); Anion Gap 5 (5-15); Aspartate Aminotransferase 13 U/L (13-40); BUN/Creatinine Ratio 12.5 (10.0-20.0); Blood Urea Nitrogen 9 mg/dL (9-23); Carbon Dioxide 28 mmol/L (20-30); Chloride 103 mmol/L (98-107); Glucose 86 mg/dL (74-106); Potassium 4.2 mmol/L (3.5-5.1); Sodium 136 mmol/L (136-145)
[2024-02-27 07:27] LABS: Bilirubin, Total 0.3 mg/dL (0.2-1.0); Total Protein 5.6 g/dL (5.7-8.2)
[2024-02-27 07:39] LABS: Alanine Aminotransferase < 9 U/L (7-40)
[2024-02-27] MEDS: POLYETHYLENE GLYCOL 17 GM PWDR PO PRN (12:26)
[2024-02-28] MEDS: LEVOTHYROXINE SODIUM 25 MCG TAB PO SCH (05:47)
[2024-02-28 06:33] LABS: Basophils # (auto) 0 10 ^3/uL (0-0.2); Basophils % (auto) 1.1 % (0.0-2.0); Eosinophils # (auto) 0.2 10 ^3/uL (0-0.8); Eosinophils % (auto) 4.4 % (0.0-7.0); Hematocrit 36.6 % (36.0-46.0); Hemoglobin 12.5 g/dL (12.2-16.2); Lymphocytes # (auto) 0.9 10 ^3/uL (0.4-5.4); Lymphocytes % (auto) 24.4 % (10.0-50.0); Mean Corpuscular Hemoglobin 32.8 pg (28.0-32.0); Mean Corpuscular Hgb Conc. 34.2 g/dL (32.0-36.0); Mean Corpuscular Volume 95.9 fL (80.0-100.0); Monocytes # (auto) 0.5 10 ^3/uL (0-1.3); Monocytes % (auto) 12.6 % (0.0-12.0); Neutrophils # (auto) 2.2 10 ^3/uL (1.6-8.6); Neutrophils % (auto) 57.5 % (37.0-80.0); Platelet Count (auto) 169 10^3/uL (140-450); Red Blood Cells 3.81 10^6/uL (4.0-5.20); Red Cell Distribution Width 13.5 % (11.8-14.3); White Blood Cell 3.8 10^3/uL (4.4-10.8)
[2024-02-28 06:53] LABS: Albumin 3.7 g/dL (3.2-4.8); Alkaline Phosphatase 51 U/L (46-116); Anion Gap 9 (5-15); Aspartate Aminotransferase 16 U/L (13-40); Bilirubin, Total 0.2 mg/dL (0.2-1.0); Blood Urea Nitrogen 12 mg/dL (9-23); Calcium 9.1 mg/dL (8.7-10.4); Carbon Dioxide 26 mmol/L (20-30); Chloride 102 mmol/L (98-107); Glucose 93 mg/dL (74-106); Potassium 4.1 mmol/L (3.5-5.1); Sodium 137 mmol/L (136-145)
[2024-02-28 06:54] LABS: Total Protein 5.7 g/dL (5.7-8.2)
[2024-02-28 06:57] LABS: Alanine Aminotransferase < 9 U/L (7-40)
[2024-02-28 08:00] VITALS: PULSE 74; RESP 16; O2SAT 96
[2024-02-28 09:00] VITALS: BP 128/62; PULSE 74; RESP 20; TEMP 98; O2SAT 97
[2024-02-28] MEDS: LACTULOSE 20Gm/30ML SOLN PO SCH (12:06)
[2024-02-28] MEDS: HYDROcodone-ACET 5/325MG TAB PO PRN (12:07)
[2024-02-28 13:00] VITALS: BP 111/57; PULSE 72; RESP 16; TEMP 98.8; O2SAT 97
[2024-02-28] MEDS: GABAPENTIN 300 MG CAP PO SCH (13:40)
[2024-02-28 16:08] VITALS: PULSE 70; RESP 18; O2SAT 98
[2024-02-28 17:00] VITALS: BP 106/59; PULSE 71; RESP 16; TEMP 97.7; O2SAT 97
[2024-02-28 21:00] VITALS: BP 96/54; PULSE 70; RESP 17; TEMP 98.3; O2SAT 96
[2024-02-29] MEDS: LEVOTHYROXINE SODIUM 25 MCG TAB PO SCH ×2 (05:19)
[2024-02-29 07:07] LABS: Basophils # (auto) 0 10 ^3/uL (0-0.2); Basophils % (auto) 0.3 % (0.0-2.0); Eosinophils # (auto) 0.1 10 ^3/uL (0-0.8); Eosinophils % (auto) 1.4 % (0.0-7.0); Hematocrit 39.1 % (36.0-46.0); Hemoglobin 12.9 g/dL (12.2-16.2); Lymphocytes # (auto) 0.4 10 ^3/uL (0.4-5.4); Lymphocytes % (auto) 4.3 % (10.0-50.0); Mean Corpuscular Hgb Conc. 33.1 g/dL (32.0-36.0); Mean Corpuscular Volume 96.7 fL (80.0-100.0); Monocytes # (auto) 0.5 10 ^3/uL (0-1.3); Monocytes % (auto) 6.2 % (0.0-12.0); Neutrophils # (auto) 7.6 10 ^3/uL (1.6-8.6); Neutrophils % (auto) 87.8 % (37.0-80.0); Platelet Count (auto) 161 10^3/uL (140-450); Red Blood Cells 4.04 10^6/uL (4.0-5.20); Red Cell Distribution Width 13.6 % (11.8-14.3); White Blood Cell 8.6 10^3/uL (4.4-10.8)
[2024-02-29 07:33] LABS: Alanine Aminotransferase 29 U/L (7-40); Albumin 3.8 g/dL (3.2-4.8); Alkaline Phosphatase 57 U/L (46-116); Anion Gap 10 (5-15); Aspartate Aminotransferase 52 U/L (13-40); BUN/Creatinine Ratio 17.2 (10.0-20.0); Blood Urea Nitrogen 11 mg/dL (9-23); Calcium 8.9 mg/dL (8.7-10.4); Carbon Dioxide 23 mmol/L (20-30); Chloride 102 mmol/L (98-107); Glucose 107 mg/dL (74-106); Potassium 3.8 mmol/L (3.5-5.1); Sodium 135 mmol/L (136-145)
[2024-02-29 07:34] LABS: Bilirubin, Total 0.4 mg/dL (0.2-1.0); Total Protein 5.9 g/dL (5.7-8.2)
[2024-02-29 08:10] VITALS: PULSE 65; RESP 20; O2SAT 97
[2024-02-29 09:00] VITALS: BP 117/55; PULSE 65; RESP 20; TEMP 98; O2SAT 97
[2024-02-29 13:00] VITALS: BP 107/51; PULSE 74; RESP 18; TEMP 98.7; O2SAT 96
[2024-02-29 17:00] VITALS: BP 109/52; PULSE 69; RESP 20; TEMP 98; O2SAT 97
[2024-03-01 08:20] VITALS: PULSE 71; RESP 18; O2SAT 97
[2024-03-01 09:00] VITALS: BP 105/55; PULSE 71; RESP 18; TEMP 97.4; O2SAT 97
[2024-03-01] MEDS ORDERED: CITALOPRAM HYDROBR 20 MG TAB PO SCH (11:15)
[2024-03-01] MEDS: CITALOPRAM HYDROBR 20 MG TAB PO ONE (12:26)
[2024-03-01 13:00] VITALS: BP 110/54; PULSE 70; RESP 18; TEMP 98.2; O2SAT 98
[2024-03-01 17:00] VITALS: BP 106/52; PULSE 70; RESP 18; TEMP 97.9; O2SAT 97
[2024-03-01 20:00] VITALS: RESP 17
[2024-03-01 20:33] VITALS: BP 106/54; PULSE 71; RESP 16; TEMP 98; O2SAT 97
[2024-03-02] VITALS (8 sets, daily range): BP systolic 107–119; BP diastolic 55–64; PULSE 64–71; RESP 15–18; TEMP 98–98.3; O2SAT 96–100
[2024-03-02] MEDS: LEVOTHYROXINE SODIUM 100 MCG TAB PO SCH (05:44)
[2024-03-02] MEDS: CITALOPRAM HYDROBR 20 MG TAB PO SCH (10:29)
[2024-03-02] MEDS: amLODIPine BESYLATE 5 MG TAB PO SCH (10:30)
[2024-03-03 07:30] VITALS: PULSE 85; RESP 15; O2SAT 96
[2024-03-03 09:00] VITALS: BP 122/71; PULSE 70; RESP 16; TEMP 98; O2SAT 99
[2024-03-03] MEDS ORDERED: METOPROLOL SUCCINATE XL 50 MG TAB PO SCH (10:00)
[2024-03-03] MEDS: DOCUSATE SOD 100 MG CAP PO SCH (10:41)
[2024-03-03] MEDS: LACTULOSE 20Gm/30ML SOLN PO SCH (10:43)
[2024-03-03] MEDS: METOPROLOL SUCCINATE XL 50 MG TAB PO SCH (10:44)
[2024-03-03 13:59] VITALS: BP 129/64; PULSE 70; RESP 16; TEMP 97.9; O2SAT 98
== END 2024-03-03 15:13 | DRG 643 ==
LOC: EDBD 09:26 → ER 09:26 → CENTRAL 09:45 → OVERFLOW 02-24 09:44 → EAST 02-24 23:58 → CENTRAL 02-25 16:25
PROVIDERS: ADMIT Internal Medicine; ATTEND Internal Medicine Geriatric Medicine
DX: E03.9 Hypothyroidism, unspecified (principal); G93.41 Metabolic encephalopathy; N30.00 Acute cystitis without hematuria; R45.851 Suicidal ideations; F41.1 Generalized anxiety disorder; F32.9 Major depressive disorder, single episode, unspecified; I10 Essential (primary) hypertension; M10.9 Gout, unspecified; I48.91 Unspecified atrial fibrillation; F17.210 Nicotine dependence, cigarettes, uncomplicated; K21.9 Gastro-esophageal reflux disease without esophagitis; G62.9 Polyneuropathy, unspecified; E78.5 Hyperlipidemia, unspecified; Z88.1 Allergy status to other antibiotic agents; Z82.49 Family history of ischemic heart disease and other diseases of the circulatory system; Z83.3 Family history of diabetes mellitus; Z95.0 Presence of cardiac pacemaker; Z79.899 Other long term (current) drug therapy
CPT/HCPCS: 36415; 71045; 80053; 80307; 80329; 81001; 82306; 82607; 83935; 84300; 84439; 84443; 84484; 85025; 87086; 93005; 97163; G0378; J0696; J2405; Q0162

== ENCOUNTER 2024-08-26 10:40 | Emergency (ER) | payer OTHER, MEDICAID ==
[~2024-08-26] VITALS: Ht 160 cm; Wt 59.0 kg
[~2024-08-26 10:40] MED LIST changes: -LEVO500T31 PO
--- NOTE | 2024-08-26 11:38 | ED.PDOC ---
HPI (NEURO) HPI Comments 89 y/o F, BIBA with PMHX of UTI, AFib, anxiety, dementia, HTN, and GOUT presents to the ED for CC of dizziness essentially wants to pass out. Patient states, that she has been experiencing symptoms of dizziness with associated vertigo x years. She endorses the sense the room in spinning. It is worse when she looks quickly to the LEFT vs RIGHT. Symptoms wax and wane spontanously. Patient relays, that symptoms have recently worsened inhibiting completion of daily activities. Patient endorses, symptoms may be related to recent UTI; states completion of antibiotics with symptoms still persisting. Patient comments on, feeling depressed as she is "not who she use to be". Patient requested help with possible placement into penit[facility] facility. Patient denies hematuria, flank pain, back pain, or N/V/D. No other associated symptoms, modifiers, recent injuries or sick contacts at this time. Chief Complaint: Dizziness Time Seen by MD: 11:10 Primary Care Provider: FRANK Gonzalez Notes: Nurses Notes, Research And Development Manager Notes, Medications, Allergies Information Source: Patient, Emergency Med Personnel Mode of Arrival: EMS Severity: Moderate Headache Severity: None Timing: Months Duration: Since onset Prehospital treatment: None Onset: At rest Circumstances: Spontaneous Symptoms: Faintness, Vertigo During: Awake History of: Hypertension Modifying factors: Nothing Past Medical History PAST MEDICAL HISTORY: AFIB, Anxiety, Gout, HTN Surgical History: Pacemaker AIRPLANE COVERER History: No Pertinent AIRPLANE COVERER History Family History Family History: Reviewed,noncontributory to illness Social History Smoker: Cigarettes, Less Than 1 Pack/Day Alcohol: Occasionally Drugs: Marijuana Lives In: Home Constitutional: denies: chills, diaphoresis, fatigue, fever, malaise, sweats, weakness, others EENTM: denies: blurred vision, double vision, ear bleeding, ear discharge, ear drainage, ear pain, ear ringing, eye pain, eye redness, hearing loss, mouth pain, mouth swelling, nasal discharge, nose bleeding, nose congestion, nose pain, photophobia, tearing, throat pain, throat swelling, voice changes, others Respiratory: denies: cough, hemoptysis, orthopnea, SOB at rest, shortness of breath, SOB with excertion, stridor, wheezing, others Cardiovascular: denies: chest pain, dizzy spells, diaphoresis, Dyspnea on exertion, edema, irregular heart beat, left arm pain, lightheadedness, palpitations, PND, syncope, others Gastrointestinal: denies: abdomen distended, abdominal pain, blood streaked bowels, constipated, diarrhea, dysphagia, difficulty swallowing, hematemesis, melena, nausea, poor appetite, poor fluid intake, rectal bleeding, rectal pain, vomiting, others Genitourinary: reports: dysuria; denies: abnormal vagina bleeding, burning, dyspareunia, flank pain, frequency, hematuria, incontinence, pain, , vagina discharge, urgency, others Neurological: reports: dizziness; denies: fainting, headache, left sided numbness, left sided weakness, numbness, paresthesia, pre-existing deficit, right sided numbness, right sided weakness, seizure, speech problems, tingling, tremors, weakness, others Musculoskeletal: denies: back pain, gout, joint pain, joint swelling, muscle pain, muscle stiffness, neck pain, others Integumetry: denies: bruises, change in color, change in hair/nails, dryness, laceration, lesions, lumps, rash, wounds, others Allergic/Immunocompromised: denies: Difficulty Healing, Frequent Infections, Hives, Itching, others Hematologic/Lymphatic: denies: anemia, blood clots, easy bleeding, easy bruising, swollen glands, others Endocrine: denies: excessive hunger, excessive sweating, excessive thirst, excessive urination, flushing, intolerance to cold, intolerance to heat, unexplained weight gain, unexplained weight loss, others Psychiatric: denies: anxiety, bipolar disorder, depression, hopeless, panic disorder, schizophrenia, sleepless, suicidal, others All Other Systems: Reviewed and Negative Physical Exam General Appearance: No Apparent Distress, Normal HEENT: Normal ENT Inspection, Pharynx Normal, TMs Normal Neck: Full Range of Motion, Non-Tender, Normal, Normal Inspection Respiratory: Chest Non-Tender, Lungs Clear, No Accessory Muscle Use, No Respiratory Distress, Normal Breath Sounds Cardiovascular: No Edema, No JVD, No Murmur, No Gallop, Normal Peripheral Pulses, Regular Rate/Rhythm Breast Exam: Deferred Gastrointestinal: No Organomegaly, Non Tender, No Pulsatile Mass, Normal Bowel Sounds, Soft Genitalia: Deferred Pelvic: Deferred Rectal: Deferred Extremities: No calf tenderness, Normal capillary refill, Normal inspection, Normal range of motion, Non-tender, No pedal edema Musculoskeletal : Apperance: Normal Neurologic: Alert, ingot stripper II-XII nml as Tested, No Motor Deficits, Normal Affect, Normal Mood, No Sensory Deficits, Other (no nystagmus) Cerebellar Function: Normal Reflexes: Normal Skin: Dry, Normal Color, Warm Lymphatic: No Adenopathy EKG EKG : Pulse Rate (adult): 70 Whiteside: Normal Cardiac Rhythm: NSR Block: None Hypertrophy: None ST: Normal Was a procedure done? Was a procedure done?: No Differential Diagnosis (SZ) General Weakness: Dehydration, Other (UTI, ELECTROLYTE IMBALANCE) X-Ray, Labs, Meds, VS Vital Signs Date Time Temp Pulse Resp B/P (MAP) Pulse Ox O2 Delivery O2 Flow Rate FiO2 08/26/24 12:34 70 08/26/24 12:25 69 20 98 Room Air* 0 21 08/26/24 12:24 69 16 154/88 (110) 99 08/26/24 11:58 97.5 70 18 178/79 (112) 97 97.5 08/26/24 11:58 70 18 97 Room Air 08/26/24 11:44 98.0 87 16 164/82 (109) 100 08/26/24 10:52 70 Lab Test 08/26/24 16:30 08/26/24 11:34 08/26/24 11:13 Range/Units Urine Color Light-yellow Yellow Urine Clarity Clear Clear Urine pH 7.5 5.0-9.0 Urine Specific [place] 1.013 1.001-1.035 Urine Protein Negative Negative Urine Ketones Negative Negative Urine Blood Negative Negative /uL Urine Nitrite Negative Negative Urine Bilirubin Negative Negative Urine Urobilinogen Normal Negative mg/dL Urine Leukocyte Esterase Negative Negative /uL Urine RBC 6 0 - 4 /hpf Urine Microscopic WBC < 1 0-5 /HPF Urine Squamous Epithelial Cells Few <5 /hpf Urine Bacteria None seen None Seen /hpf Urine Glucose Normal Normal mg/dL B-Type Natriuretic Peptide 92.44 0-100 pg/mL White Blood Count 4.2 L 4.4-10.8 10^3/uL Red Blood Count 4.23 4.0-5.20 10^6/uL Hemoglobin 13.7 12.2-16.2 g/dL Hematocrit 41.5 36.0-46.0 % Mean Corpuscular Volume 98.1 80.0-100.0 fL Mean Corpuscular Hemoglobin 32.3 H 28.0-32.0 pg Mean Corpuscular Hemoglobin Concent 33.0 32.0-36.0 g/dL Red Cell Distribution Width 13.9 11.8-14.3 % Platelet Count 211 140-450 10^3/uL Mean Platelet Volume 7.6 6.9-10.8 fL Neutrophils (%) (Auto) 67.4 37.0-80.0 % Lymphocytes (%) (Auto) 19.4 10.0-50.0 % Monocytes (%) (Auto) 9.1 0.0-12.0 % Eosinophils (%) (Auto) 3.2 0.0-7.0 % Basophils (%) (Auto) 0.9 0.0-2.0 % Neutrophils # (Auto) 2.8 1.6-8.6 10 ^3/uL Lymphocytes # (Auto) 0.8 0.4-5.4 10 ^3/uL Monocytes # (Auto) 0.4 0-1.3 10 ^3/uL Eosinophils # (Auto) 0.1 0-0.8 10 ^3/uL Basophils # (Auto) 0 0-0.2 10 ^3/uL Nucleated Red Blood Cells 0.3 % D-Dimer, Quantitative < 0.19 0.0-0.49 mg/L FEU Sodium Level 140 136-145 mmol/L Potassium Level 4.3 3.5-5.1 mmol/L Chloride Level 103 98-107 mmol/L Carbon Dioxide Level 32 H 20-31 mmol/L Anion Gap 5 5-15 Blood Urea Nitrogen 16 9-23 mg/dL Creatinine 0.75 0.550-1.02 mg/dL Glomerular Filtration Rate Calc 77 >90 mL/min BUN/Creatinine Ratio 21.3 H 10.0-20.0 Serum Glucose 90 74-106 mg/dL Calcium Level 9.7 8.7-10.4 mg/dL Magnesium Level 2.0 1.6-2.6 mg/dL Total Bilirubin 0.4 0.2-1.0 mg/dL Aspartate Amino Transferase (AST) 23 13-40 U/L Alanine Aminotransferase (ALT) 17 7-40 U/L Alkaline Phosphatase 70 46-116 U/L Troponin I High Sensitivity < 3 L </=34 ng/L Total Protein 6.9 5.7-8.2 g/dL Albumin 4.5 3.2-4.8 g/dL Thyroid Stimulating Hormone (TSH) 1.47 0.55-4.78 uIU/mL [place] [id number] Ph: [phone] DIAGNOSTIC IMAGING Diagnostic Imaging Report : [id number] Signed PATIENT: JOLENE SAVAGE ACCT: [id number] UNIT: [id number] : 02/07/1935 LOC: ER ROOM / BED: / AGE / SEX: 89 / F ADM STATUS: REG ER SERVICE 1107 ORDERING PHYSICIAN: ROSEMARY JUDD MD PROCEDURE(s): CXRP - CHEST PORTABLE REASON: confused ORDER NUMBER(s): [id number], ACCESSION NUMBER(s): [id number] EXAM: XY CHEST PORTABLE HISTORY: confused COMPARISON: XY CHEST PORTABLE on DOS: 02/21/24, XY CHEST XRAY 1 VIEW on DOS: 12/10/23, XY CHEST PORTABLE on DOS: 10/12/22, CHEST PORTABLE on DOS: 10/11/21, CXRP on DOS: 10/11/21 TECHNIQUE: Portable upright AP view of the chest was performed. FINDINGS: No pneumothorax, consolidative infiltrates, or pulmonary edema. There is mild lingular scarring. The heart is borderline enlarged. Left chest pacemaker is re-identified. IMPRESSION: No acute intrathoracic process. ATED BY: AWILDA ASH MD DICTATED DATE/TIME: 08/26/24 1146 SIGNED BY: AWILDA ASH MD SIGNED DATE/TIME: 08/26/24 1146 CC: [address] [address] Ph: [phone] DIAGNOSTIC IMAGING Diagnostic Imaging Report : [id number] Signed PATIENT: JOLENE SAVAGE ACCT: [id number] UNIT: [id number] : 02/07/1935 LOC: ER ROOM / BED: / AGE / SEX: 89 / F ADM STATUS: REG ER SERVICE 1114 ORDERING PHYSICIAN: ROSEMARY JUDD MD PROCEDURE(s): HWOCT - HEAD WITHOUT CONTRAST REASON: aloc ORDER NUMBER(s): [id number], ACCESSION NUMBER(s): [id number] EXAM: CT HEAD WITHOUT CONTRAST HISTORY: aloc COMPARISON: CT HEAD WITHOUT CONTRAST on DOS: 10/25/23, CT HEAD WITHOUT CONTRAST on DOS: 10/25/23, CT HEAD WITHOUT CONTRAST on DOS: 08/27/23, HEAD WITHOUT CONTRAST on DOS: 10/11/21, HEAD WITHOUT CONTRAST on DOS: 01/12/19 TECHNIQUE: Noncontrast axial CT images of the head were performed. Sagittal and coronal reformatted images were obtained. This CT exam was performed using 1 or more of the following dose reduction techniques: Automated exposure control, adjustment of the mA and/or kv according to patient size, or the use of iterative reconstruction techniques. Radiation Dose: CTDI volume is 52.26 mGy. Dose-length product is 158.44 mGy*cm FINDINGS: There is mild global brain atrophy. There is moderate decreased attenuation in the periventricular and bicerebral white matter. No intracranial hemorrhage, mass, midline shift, hydrocephalus, or evidence of acute large vessel infarct. There are postoperative changes of bilateral cataract extraction surgery. The partially-visualized paranasal sinuses are clear. The bilateral mastoid air cells and middle ear spaces are clear. No cranial fracture or scalp edema. IMPRESSION: Global brain atrophy and chronic ischemic changes without evidence of acute intracranial process. ATED BY: AWILDA ASH MD DICTATED DATE/TIME: 08/26/24 1145 SIGNED BY: AWILDA ASH MD SIGNED DATE/TIME: 08/26/24 114 CC: X-Ray, Labs, Meds, VS Comment This 89-year-old female presents secondary to sense of wanting to pass out associated with intermittent dizziness. I am concerned the patient was having syncopal episodes. Considering her living situation, she had the patient may fall and have a terrible outcome. On with the patient further workup management of her syncope and dizziness. Time of 1ST Reevaluation: 11:40 Reevaluation 1ST: Unchanged Patient Education/Counseling: Diagnosis, Treatment Family Education/Counseling: No Family Present Departure 1 Departure Time of Disposition: 13:48 Impression: Primary Impression: Syncope Additional Impression: Dizziness Disposition: ADMITTED INPATIENT Condition: Serious Critical Care Note Critical Care Time?: No Stability Stability form required: No Heart Score Heart Score: Heart Score Response (Comments) Value History N/A 0 EKG N/A 0 Age N/A 0 Risk Factors N/A 0 Troponin N/A 0 Total 0 I personally scribed for ROSEMARY JUDD MD ([email or web address]) on 08/26/24 at 11:37. Electronically submitted by Mariah Mcleod ([employer]). I personally scribed for ROSEMARY JUDD MD ([email or web address]) on 08/26/24 at 12:18. Electronically submitted by Mariah Mcleod ([employer]). I personally scribed for ROSEMARY JUDD MD ([email or web address]) on 08/26/24 at 12:24. Electronically submitted by Mariah Mcleod ([employer]). I personally scribed for ROSEMARY JUDD MD ([email or web address]) on 08/26/24 at 12:34. Electronically submitted by Mariah Mcleod ([employer]). ROSEMARY JUDD MD Aug 26, 2024 11:37
--- NOTE | 2024-08-26 11:47 | DVH ---
EXAM: CT HEAD WITHOUT CONTRAST HISTORY: aloc COMPARISON: CT HEAD WITHOUT CONTRAST on DOS: 10/25/23, CT HEAD WITHOUT CONTRAST on DOS: 10/25/23, CT HE AD WITHOUT CONTRAST on DOS: 08/27/23, HEAD WITHOUT CONTRAST on DOS: 10/11/21, HEAD WITHOUT CONTRAST on DOS: 01/12/19 TECHNIQUE: Noncontrast axial CT images of the head were performed. Sagittal and coronal reformatted i mages were obtained. This CT exam was performed using 1 or more of the following dose reduction techn iques: Automated exposure control, adjustment of the mA and/or kv according to patient size, or the u se of iterative reconstruction techniques. Radiation Dose: CTDI volume is 52.26 mGy. Dose-length product is 158.44 mGy*cm FINDINGS: There is mild global brain atrophy. There is moderate decreased attenuation in the periventricular an d bicerebral white matter. No intracranial hemorrhage, mass, midline shift, hydrocephalus, or evidenc e of acute large vessel infarct. There are postoperative changes of bilateral cataract extraction abigail mary. The partially-visualized paranasal sinuses are clear. The bilateral mastoid air cells and middl e ear spaces are clear. No cranial fracture or scalp edema. IMPRESSION: Global brain atrophy and chronic ischemic changes without evidence of acute intracranial process.
--- NOTE | 2024-08-26 11:49 | DVH ---
EXAM: XY CHEST PORTABLE HISTORY: confused COMPARISON: XY CHEST PORTABLE on DOS: 02/21/24, XY CHEST XRAY 1 VIEW on DOS: 12/10/23, XY CHEST PORTABLE on DOS: 10/12/22, CHEST PORTABLE on DOS: 10/11/21, CXRP on DOS: 10/11/21 TECHNIQUE: Portable upright AP view of the chest was performed. FINDINGS: No pneumothorax, consolidative infiltrates, or pulmonary edema. There is mild lingular scar ring. The heart is borderline enlarged. Left chest pacemaker is re-identified. IMPRESSION: No acute intrathoracic process.
[2024-08-26 12:03] LABS: Alanine Aminotransferase 17 U/L (7-40); Albumin 4.5 g/dL (3.2-4.8); Alkaline Phosphatase 70 U/L (46-116); Anion Gap 5 (5-15); Aspartate Aminotransferase 23 U/L (13-40); BUN/Creatinine Ratio 21.3 (10.0-20.0); Blood Urea Nitrogen 16 mg/dL (9-23); Calcium 9.7 mg/dL (8.7-10.4); Carbon Dioxide 32 mmol/L (20-31); Chloride 103 mmol/L (98-107); Glucose 90 mg/dL (74-106); Potassium 4.3 mmol/L (3.5-5.1); Sodium 140 mmol/L (136-145); Total Protein 6.9 g/dL (5.7-8.2)
[2024-08-26 12:04] LABS: Bilirubin, Total 0.4 mg/dL (0.2-1.0)
[2024-08-26 12:25] VITALS: PULSE 69; RESP 20; O2SAT 98
[2024-08-26 12:41] LABS: Basophils # (auto) 0 10 ^3/uL (0-0.2); Basophils % (auto) 0.9 % (0.0-2.0); Eosinophils # (auto) 0.1 10 ^3/uL (0-0.8); Eosinophils % (auto) 3.2 % (0.0-7.0); Hematocrit 41.5 % (36.0-46.0); Hemoglobin 13.7 g/dL (12.2-16.2); Lymphocytes # (auto) 0.8 10 ^3/uL (0.4-5.4); Lymphocytes % (auto) 19.4 % (10.0-50.0); Mean Corpuscular Hemoglobin 32.3 pg (28.0-32.0); Mean Corpuscular Volume 98.1 fL (80.0-100.0); Monocytes # (auto) 0.4 10 ^3/uL (0-1.3); Monocytes % (auto) 9.1 % (0.0-12.0); Neutrophils # (auto) 2.8 10 ^3/uL (1.6-8.6); Neutrophils % (auto) 67.4 % (37.0-80.0); Nucleated Red Blood Cells % 0.3 %; Platelet Count (auto) 211 10^3/uL (140-450); Red Blood Cells 4.23 10^6/uL (4.0-5.20); Red Cell Distribution Width 13.9 % (11.8-14.3); White Blood Cell 4.2 10^3/uL (4.4-10.8)
--- NOTE | 2024-08-26 13:28 | ECG ---
[facility] Test Date: 2024-08-26 Test Time: 10:52:06 Pat Name: JOLENE SAVAGE Department: ER Room: Gender: F Coat Joiner Lockstitch: LIVIA : 1935-02-07 Requested By: ROSEMARY JUDD Order Number: [id number] Reading MD: Johnnie Castaneda Measurements Intervals [place] Rate: 70 P: 0 FL: 209 QRS: -80 QRSD: 142 T: 59 QT: 449 QTc: 485 Interpretive Statements Atrial-sensed ventricular-paced complexes No further analysis attempted due to paced rhythm Electronically Signed On 08-28-2024 19:10:30 PDT by Johnnie Castaneda Please click the below link to view image of tracing.
[2024-08-26 16:59] LABS: Urine Bacteria None Seen /hpf (None Seen)
[2024-08-26 17:07] LABS: Urine Blood Negative /uL (Negative); Urine Clarity Clear (Clear); Urine Color Light-Yellow (Yellow); Urine Protein, UAD Negative (Negative); Urine Specific Gravity 1.013 (1.001-1.035); Urine Squamous Epithelial Cell FEW /hpf (<5); Urine Urobilinogen Normal (Negative); Urine WBC < 1 /HPF (0-5); Urine pH 7.5 (5.0-9.0)
[2024-08-26 22:30] VITALS: PULSE 73; RESP 11; O2SAT 98
[2024-08-27] MEDS: METOPROLOL TARTRATE 25 MG TAB PO ONE (00:21)
[2024-08-27] MEDS: ACETAMINOPHEN 325 MG TAB PO ONE (02:30)
[2024-08-27 02:39] VITALS: BP 178/91; PULSE 70; RESP 12; TEMP 98; O2SAT 100
--- NOTE | 2024-08-27 03:28 | DVHINCON2 ---
Date of service: Aug 26, [address] Simon Reason for Consultation Medical Management History of Present Illness This is an 89-year-old female with listed past medical history who presents with acute on chronic sensation of baseline vertigo. Patient reports that sometimes when her vertigo symptoms exacerbate, she is unable to care for self which is why she presented to the hospital. She was hoping for rehabilitation so that she can get back to baseline or placement eventually as she lives alone. I was consulted to coordinate transfer to [facility] [place] [place] pending placement at long term facility. No major events reported overnight. Patient denies complaints of fevers, chills, chest pain, palpitations, cough, shortness of breath, abdominal pain, nausea, vomiting, diarrhea, constipation, dysuria, lightheadedness, headaches, weakness, paresthesia or other complaints. Patient denies homicidal or suicidal ideation. Patient denies recent mood changes. Last bowel movement was yesterday brown, soft without melena or hematochezia. Past Medical History Chronic vertigo Major depression Hypertension GERD Paroxysmal atrial fibrillation Hyperlipidemia Hypothyroidism Family History: Family history: Cardiovascular disease G8 MOTHER Family history: Diabetes mellitus G8 MOTHER Allergies: Coded Allergies: Ciprofloxacin (Verified Allergy, Severe, 10/13/22) Valproic Acid (Verified Allergy, Unknown, 08/26/24) Uncoded Allergies: CEPHALEXIM (Allergy, Unknown, 08/26/24) Home Meds Active Scripts Amlodipine Besylate (NORVASC TABLET) 5 Mg Tb, 10 MG PO DAILY, #30 TAB Prov:LAURENT SALAS MD 10/13/22 Reported Medications Folic Acid (Folic Acid) 1 Mg Tab, 1 TAB PO DAILY 10/13/22 Ferrous Sulfate (Ferosul) 325 Mg Tab, 1 TAB PO DAILY 10/13/22 Cholecalciferol (VITAMIN D3) 5,000 Unit Cap, 1 CAP PO DAILY 10/13/22 Pantoprazole Sodium Sesquihydr (Pantoprazole Sodium) 40 Mg Tab, 1 TAB PO DAILY 10/13/22 Levothyroxine Sodium (Levothyroxine Sodium) 25 Mcg Tab, 1 TAB PO DAILY 10/13/22 Gabapentin (Gabapentin) 100 Mg Cap, 1 CAP PO TID 10/13/22 Cyanocobalamin (Vitamin B-12) 1,000 Mcg Tab, 1 TAB PO DAILY 10/13/22 Fluticasone Propionate (Nasal) (Fluticasone Propionate) 50 Mcg/Act Spr, 1 SPRAY KAROL DAILY 10/13/22 Metoprolol Tartrate (Lopressor) 25 Mg Tb, 1 TAB PO BID 10/13/22 Ezetimibe (Ezetimibe) 10 Mg Tab, 1 TAB PO DAILY 10/13/22 Lorazepam (Ativan) 0.5 Mg Tab, 0.5 MG PO HS 10/13/22 Rivaroxaban (Xarelto Tablet) 20 Mg Tb, 1 TAB PO DAILY 10/13/22 Vital Signs Vital Signs Date Time Temp Pulse Resp B/P (MAP) Pulse Ox O2 Delivery O2 Flow Rate FiO2 08/27/24 02:39 98.0 70 12 178/91 (120) 100 98.0 08/26/24 22:30 Room Air* 0 21 Physical Exam No significant findings on physical examination in collaboration with ER physician. Labs/Diagnostic Data Labs Test 08/26/24 16:30 08/26/24 11:34 08/26/24 11:13 Range/Units Urine Color Light-yellow Yellow Urine Clarity Clear Clear Urine pH 7.5 5.0-9.0 Urine Specific [place] 1.013 1.001-1.035 Urine Protein Negative Negative Urine Ketones Negative Negative Urine Blood Negative Negative /uL Urine Nitrite Negative Negative Urine Bilirubin Negative Negative Urine Urobilinogen Normal Negative mg/dL Urine Leukocyte Esterase Negative Negative /uL Urine RBC 6 0 - 4 /hpf Urine Microscopic WBC < 1 0-5 /HPF Urine Squamous Epithelial Cells Few <5 /hpf Urine Bacteria None seen None Seen /hpf Urine Glucose Normal Normal mg/dL B-Type Natriuretic Peptide 92.44 0-100 pg/mL White Blood Count 4.2 L 4.4-10.8 10^3/uL Red Blood Count 4.23 4.0-5.20 10^6/uL Hemoglobin 13.7 12.2-16.2 g/dL Hematocrit 41.5 36.0-46.0 % Mean Corpuscular Volume 98.1 80.0-100.0 fL Mean Corpuscular Hemoglobin 32.3 H 28.0-32.0 pg Mean Corpuscular Hemoglobin Concent 33.0 32.0-36.0 g/dL Red Cell Distribution Width 13.9 11.8-14.3 % Platelet Count 211 140-450 10^3/uL Mean Platelet Volume 7.6 6.9-10.8 fL Neutrophils (%) (Auto) 67.4 37.0-80.0 % Lymphocytes (%) (Auto) 19.4 10.0-50.0 % Monocytes (%) (Auto) 9.1 0.0-12.0 % Eosinophils (%) (Auto) 3.2 0.0-7.0 % Basophils (%) (Auto) 0.9 0.0-2.0 % Neutrophils # (Auto) 2.8 1.6-8.6 10 ^3/uL Lymphocytes # (Auto) 0.8 0.4-5.4 10 ^3/uL Monocytes # (Auto) 0.4 0-1.3 10 ^3/uL Eosinophils # (Auto) 0.1 0-0.8 10 ^3/uL Basophils # (Auto) 0 0-0.2 10 ^3/uL Nucleated Red Blood Cells 0.3 % D-Dimer, Quantitative < 0.19 0.0-0.49 mg/L FEU Sodium Level 140 136-145 mmol/L Potassium Level 4.3 3.5-5.1 mmol/L Chloride Level 103 98-107 mmol/L Carbon Dioxide Level 32 H 20-31 mmol/L Anion Gap 5 5-15 Blood Urea Nitrogen 16 9-23 mg/dL Creatinine 0.75 0.550-1.02 mg/dL Glomerular Filtration Rate Calc 77 >90 mL/min BUN/Creatinine Ratio 21.3 H 10.0-20.0 Serum Glucose 90 74-106 mg/dL Calcium Level 9.7 8.7-10.4 mg/dL Magnesium Level 2.0 1.6-2.6 mg/dL Total Bilirubin 0.4 0.2-1.0 mg/dL Aspartate Amino Transferase (AST) 23 13-40 U/L Alanine Aminotransferase (ALT) 17 7-40 U/L Alkaline Phosphatase 70 46-116 U/L Troponin I High Sensitivity < 3 L </=34 ng/L Total Protein 6.9 5.7-8.2 g/dL Albumin 4.5 3.2-4.8 g/dL Thyroid Stimulating Hormone (TSH) 1.47 0.55-4.78 uIU/mL Plan/Recommendation This is an 89-year-old female with a past medical history presented with acute recurrent exacerbation of vertigo now improved admitted for further evaluation management due to being unable to care for self and requesting to be transferred to long term facility for physical therapy. She has long-term plans for placement is already being coordinated as outpatient in the interim. Thus far, complete blood count, comprehensive metabolic panel, TSH, BNP, D-dimer and urinalysis as well as CT of the head and chest x-ray revealed no significant acute findings. Physical examination reveals no significant findings or focal deficits. Will coordinate transfer to [facility] [place] [place]. Thank you for allowing to participate in care of your patient. Please do not hesitate to contact me with any further questions or concerns. All above discussed with the patient who verbalized agreement and understanding of current status and plan. All questions were answered. Patient declined reaching out to any family or close friends for an update. Plan discussed with: Other MACARIO SALAS MD Aug 27, 2024 03:28
== END 2024-08-26 21:26 | disposition short-term general hospital (02) ==
LOC: EDBD 10:40 → ER 10:40
DX: R55 Syncope and collapse (principal); I10 Essential (primary) hypertension; E03.9 Hypothyroidism, unspecified; E78.5 Hyperlipidemia, unspecified; F17.210 Nicotine dependence, cigarettes, uncomplicated; M19.90 Unspecified osteoarthritis, unspecified site; M10.9 Gout, unspecified; R06.02 Shortness of breath; Z79.899 Other long term (current) drug therapy; Z87.440 Personal history of urinary (tract) infections; Z88.1 Allergy status to other antibiotic agents
CPT/HCPCS: 36415; 70450; 71045; 80053; 81001; 83735; 83880; 84443; 84484; 85025; 85379; 93005